=== PATIENT | female | born 1955 | race Caucasian/White ===

== ENCOUNTER 2024-07-12 09:38 | Emergency (ER) | payer MEDICARE, SELFPAY ==
[2024-07-12 09:48] VITALS: BP 121/76
[2024-07-12 10:01] LABS: % Basophils 0.4 % (0-2); % Immature Granulocytes 0.2 % (0-0.5); % Monocytes 8.6 % (1.7-9.3); % Neutrophils 64.8 % (42.2-75.2); Absolute Eosinophils 0.2 10^3/uL (0-0.7); Absolute Lymphocytes 1.3 10^3/uL (1.2-3.4); Absolute Monocytes 0.5 10^3/uL (0.1-0.6); Absolute Neutrophils 3.7 10^3/uL (1.4-6.5); Hematocrit 36.5 % (37.0-47.0); Hemoglobin 10.9 g/dL (12.0-16.0); Mean Corp Hgb Conc. 29.9 g/dL (33.0-37.0); Mean Corpuscular Hgb 24.9 pg (27.0-31.0); Mean Corpuscular Volume 83.5 fL (81.0-99.0); Mean Platelet Volume 8.7 fL (7.4-10.4); Nucleated Red Blood Cells % 0 %; Platelet Count 324 10^3/uL (130-400); Red Blood Cell Count 4.37 10^6/uL (4.20-5.40); Red Cell Dist. Width 18.2 % (11.5-14.5); White Blood Cell Count 5.7 10^3/uL (4.8-10.8)
[2024-07-12 10:18] LABS: ALT (SGPT) 23 U/L (0-35); AST (SGOT) 23 U/L (14-36); Albumin 3.6 g/dl (3.5-5.0); Alkaline Phosphatase 128 U/L (38-126); Blood Urea Nitrogen 14 mg/dl (7-17); Calcium 9.5 mg/dl (8.4-10.2); Carbon Dioxide 30 mmol/L (22-30); Chloride 105 mmol/L (98-107); Glucose 150 mg/dl (70-99); Potassium 4.1 mmol/L (3.5-5.1); Sodium 141 mmol/L (135-145); Total Bilirubin 0.3 mg/dl (0.2-1.3); Total Protein 6.6 g/dl (6.3-8.2); eGFR > 60.00
[2024-07-12 10:24] LABS: NT-proBNP 86.9 pg/ml
--- NOTE | 2024-07-12 13:07 | ED.GENMED ---
History of Present Illness
General
Chief Complaint: Swelling
Source: patient and spouse
Exam Limitations: none
Time Seen by Provider: 07/12/24 12:57
History of Present Illness
History of Present Illness:
68yoF with a history of hypertension, seizures, brain tumor s/p radiation currently in remission, and prior DVT in [address] with [address] in [address] presenting with her for evaluation of bilateral leg swelling. Symptoms began about 2 to 3 days
ago. She reports some discomfort primarily in the right lower leg. has been discussing her symptoms with her PCP and they were advised to come to the ED to rule out a DVT. Patient is otherwise asymptomatic and denies any chest pain or
shortness of breath. Patient has had multiple recent hospitalizations in [facility]. She was admitted in March 2024 for seizures and was on a ventilator. She has also had multiple recent hospitalizations for a UTI. No urinary
complaints at this time.
Past History
Past History
ED Past Medical History: Cancer (Brain tumor/glioma dx 03/2019- XRT treatments at [facility]. Has initial appointment with [place] [facility], Dr Amaral 08/15/2019), GERD, HTN, Hypercholesterolemia, Psychiatric (Anxiety/depression), Other (Iron Deficiency
anemia, migraine, postherpetic neuralgia left lower extremity, DVT/PE June 2019 with Xarelto failure, now maintained on Lovenox), Other (diverticulitis w/ abscess/perf 05/04/19) and Other (UTI with urosepsis June 2019)
ED Past Surgical History: Brain (Brain biopsy March 2019), Gynecological (Hysterectomy) and Other (partial colectomy/colostomy Apr 2019)
Social History
Tobacco: Smoker
Alcohol: None
Personal:
Living: with family
Employment: Retired
Family History
Family History: Other (Noncontributory)
Phy Exam
General Physical Exam
General Presentation: well appearing and no apparent distress
General age: appears stated age
General Skin: warm and dry
General Habitus: normal
General Mental: alert
ENT Exam
ENT Exam: normocephalic
Cardiovascular Exam
Cardiovascular Exam: regular rate/rhythm
Pulmonary Exam
Pulmonary Exam: lungs clear, no respiratory distress, no rales, no crackles and no rhonchi
Neurological Exam
Neurological Exam: alert
Musculoskeletal Exam
Musculoskeletal Exam: other (No pitting edema noted to bilateral lower extremities. No skin changes or wounds noted.)
Skin Exam
Skin Exam: normal color and warm/dry
Psychiatric Exam
Psychiatric Exam: normal mood/affect
Scores
Heart Failure Risk
Heart Failure Risk Score: Not Applicable
Course
Orders/Labs/Results
Orders:
Orders
07/12/24 09:55
Complete Blood Count/With Diff Urgent
Comprehensive Metabolic Panel Urgent
NT-proBNP Urgent
07/12/24 13:07
Venous Doppler Lwr Ext Bilat [US Periph Venous LOWER Ext Jose] Urgent
Comment:
Reason For Exam: bilateral leg swelling
Abnormal Lab Results
07/12/24
09:55
Hgb 10.9 L g/dL
(12.0-16.0)
Hct 36.5 L %
(37.0-47.0)
MCH 24.9 L pg
(27.0-31.0)
MCHC 29.9 L g/dL
(33.0-37.0)
RDW 18.2 H %
(11.5-14.5)
Glucose 150 H mg/dl
(70-99)
Alkaline Phosphatase 128 H U/L
(38-126)
07/12/24 09:55
07/12/24 09:55
Vital Signs
Initial and Last Documented VS:
Initial Vital Signs
Temp Pulse Resp BP Pulse Ox
97.8 F 82 16 121/76 99
07/12/24 09:48 07/12/24 09:48 07/12/24 09:48 07/12/24 09:48 07/12/24 09:48
Last Documented Vital Signs
Temp Pulse Resp BP Pulse Ox
97.8 F 75 18 92/58 98
07/12/24 09:48 07/12/24 14:12 07/12/24 14:12 07/12/24 14:12 07/12/24 14:12
MDM/Problems Addressed
Differential Diagnosis Includes:
68yoF here with bilateral leg swelling x 2-3 days. Sent in by PCP to r/o DVT. Denies CP/SOB. Currently has IVC filter in place since 2019. VSS. She is well appearing in no distress. Non-pitting edema noted in bilateral lower extremities without skin
changes. Differential diagnosis includes but is not limited to: dependent edema, DVT, less likely CHF as she denies any orthopnea, has no rales on lung exam, and does not have a history of this
Initial ED plan: Labs obtained in triage. Renal function and BNP normal. Will check bilateral venous duplex.
*Critical Care Note
Total Time (30-74mins, 75-104mins- exclusive of procedures): Not Applicable
Update Note
Update Note:
Venous duplex shows nonocclusive thrombus in the left common femoral vein, popliteal vein, and peroneal vein which is most likely chronic. 'Some acute superimposed upon chronic thrombus cannot be entirely excluded.' There is no DVT in the right
lower extremity where she is having most of her pain. She was on anticoagulation in 2019 after a DVT/PE but developed a large spontaneous thigh hematoma. Hematology discontinued anticoagulation at that time and an IVC filter was placed. As the
DVT is likely chronic and patient has an IVC filter in place with prior complications from anticoagulation, do not feel anticoagulation is warranted at this time. I called to discuss case with her PCP, Dr. Garcia, who is in agreement with this.
Plan for close outpatient f/u with repeat venous duplex in 1-2 weeks. Patient and also comfortable with this. ED return precautions discussed and patient discharged in stable condition.
ED Attending Note
-
Portions of this chart may have been created with voice recognition software.� Occasional wrong word or��sound alike� substitutions may have occurred due to the inherent limitations of voice recognition software.
Discharge Plan
Departure
Patient Disposition: Home (Routine Discharge)
Date of Disposition: 07/12/24
Time of Disposition: 15:15
Patient with high blood pressure during this ER visit?: No
Discharge Problem:
Edema of both lower legs, Chronic deep vein thrombosis (DVT) of left lower extremity
Instructions: Dependent Edema (DC)
Prescriptions:
No Action
omeprazole 40 MG capsule,delayed release(DR/EC)
40 mg PO DAILY
atorvastatin 10 MG tablet
10 mg PO DAILY
bupropion HCl 100 MG tablet sustained-release 12 hr
100 mg PO BID
diphenhydramine HCl [Banophen] 25 MG capsule
25 mg PO DAILY
polyethylene glycol 3350 17 GRAMS powder in packet
17 grams PO DAILY
ondansetron HCl 4 MG tablet
4 mg PO BIDPRN PRN (Reason: nausea)
gabapentin 100 MG capsule
300 mg PO TID
metoprolol tartrate 12.5 MG tablet
12.5 mg PO BID Qty: 60 0RF
furosemide [Lasix] 20 MG tablet
20 mg PO .EVERY OTHER DAY Qty: 30 0RF
folic acid 0.4 MG tablet
0.4 mg PO DAILY
potassium chloride [Klor-Con M20] 20 MEQ tablet,ER particles/crystals
20 meq PO .EVERY OTHER DAY
ferrous sulfate [Feosol] 325 MG tablet
325 mg PO DAILY
tramadol 50 MG tablet
50 mg PO Q6HPRN PRN (Reason: moderate pain) Qty: 12 0RF
ondansetron 4 MG tablet,disintegrating
4 mg PO TIDPRN PRN (Reason: nausea/vomiting) Qty: 21 0RF
Referrals:
Zachery Garcia MD [Family Provider] -
Activity Restrictions/Additional Instructions:
Elevate your legs and wear compression socks to help with swelling.
Please follow-up with your family doctor. You should have a repeat ultrasound of your legs in 1-2 weeks.
Return to the ER with any worsening symptoms, chest pain, shortness of breath.
Interventions
Interventions:
*Risk Screen - Suicide Last Done: 07/12/24 09:49
*Neglect/Abuse Screening Last Done: 07/12/24 09:49
ED- Fall Risk Assessment Last Done: 07/12/24 14:13
*ED COVID-19 Vaccine History Last Done: 07/12/24 14:12
*Nursing Disposition Last Done: 07/12/24 15:28
ED- Cardiac Assessment Last Done: 07/12/24 14:13
ED- Pulmonary Assessment Last Done: 07/12/24 14:13
ED-Skin Assessment Last Done: 07/12/24 14:13
Discharge Date and Time
Discharge Date/Time: 07/12/24 15:29
Print Language: BULGARIAN
[2024-07-12 14:12] VITALS: BP 92/58
== END 2024-07-12 15:29 | disposition home or self-care (01) ==
LOC: EMR 09:38
PROVIDERS: EMERGENCY PHYSICIAN Emergency Medicine; FAMILY PHYSICIAN Family Medicine
DX: R60.0 Localized edema (principal); I82.502 Chronic embolism and thrombosis of unspecified deep veins of left lower extremity; I10 Essential (primary) hypertension; E78.00 Pure hypercholesterolemia, unspecified; F17.200 Nicotine dependence, unspecified, uncomplicated; F41.8 Other specified anxiety disorders; K21.9 Gastro-esophageal reflux disease without esophagitis; Z87.440 Personal history of urinary (tract) infections; Z90.710 Acquired absence of both cervix and uterus; Z92.3 Personal history of irradiation; Z93.3 Colostomy status
CPT/HCPCS: 99284; 80053; 83880; 85025; 93970

== ENCOUNTER → 2024-07-25 06:57 | Outpatient (REF) | payer MEDICARE, SELFPAY | LOC: RAD 06:57 | PROVIDERS: ATTENDING PHYSICIAN Family Medicine | DX: I82.409 Acute embolism and thrombosis of unspecified deep veins of unspecified lower extremity (principal); E78.2 Mixed hyperlipidemia; I10 Essential (primary) hypertension; C71.9 Malignant neoplasm of brain, unspecified; N39.0 Urinary tract infection, site not specified; R56.9 Unspecified convulsions; R60.0 Localized edema | CPT/HCPCS: 93970 ==